=== PATIENT | male | born 2000 | race Caucasian/White ===

== ENCOUNTER 2024-01-14 19:17 | Outpatient (REF) | payer SELFPAY ==
[2024-01-17 10:59] LABS: TB Interpretation Negative (Negative)
== END 2024-01-14 19:18 | disposition home or self-care (01) ==
LOC: LBO 19:17
PROVIDERS: PCP Pediatrics; Visit Provider Nurse Practitioner Family
DX: Z02.1 Encounter for pre-employment examination (principal)
CPT/HCPCS: 36415; 86480